=== PATIENT | female | born 1955 | race Caucasian/White ===

== ENCOUNTER 2016-11-17 15:25 | Outpatient (CLI) | payer OTHER ==
--- NOTE | 2016-11-17 17:43 | RAD ---
3 VIEWS RIGHT ANKLE: Date: 11/17/16 HISTORY: Follow-up fracture right ankle. Injury occurred 5 weeks ago. FINDINGS: No prior studies are available for comparison. There is a slightly fracture involving the most inferior aspect of the right lateral malleolus. There is mild overlying subcutaneous soft tissu e swelling. No additional fracture is seen, and there is no dislocation. Plantar calcaneal enthesoph yte is seen. IMPRESSION: Fracture involving the inferior aspect of the lateral malleolus with overlying subcutaneous soft tis len swelling. No prior studies are available for direct comparison. POS: [facility]
== END 2016-11-17 15:26 | disposition home or self-care (01) ==
LOC: NAV RAD 15:25
PROVIDERS: ATTEND Family Medicine
DX: S82.831A Other fracture of upper and lower end of right fibula, initial encounter for closed fracture (principal)

== ENCOUNTER 2016-12-13 09:53 | Outpatient (CLI) | payer OTHER ==
--- NOTE | 2016-12-13 12:13 | RAD ---
RIGHT TIBIA AND FIBULA: History: Fracture of the right fibula. FINDINGS: Comparison made with examination of 11-17-16. Mildly displaced fracture of the inferior tip of the right fibula is again seen without significant interval healing. The right tibia is intact. A small plantar calcaneal spur is again noted. POS: [facility]
== END 2016-12-13 09:54 | disposition home or self-care (01) ==
LOC: NAV RAD 09:53
PROVIDERS: ATTEND Family Medicine
DX: S82.831D Other fracture of upper and lower end of right fibula, subsequent encounter for closed fracture with routine healing (principal); M77.31 Calcaneal spur, right foot